=== PATIENT | female | born 1960 | race Caucasian/White ===

== ENCOUNTER 2017-10-04 13:25 | Emergency (ER) | payer OTHER ==
[~2017-10-04] VITALS: Ht 162.6 cm; Wt 71.1 kg
[2017-10-04] MEDS ORDERED: SODIUM CHLORIDE FLUSH 10ML SYR IVF ONE (14:00)
[2017-10-04] MEDS ORDERED: SODIUM CHLORIDE 0.9% 1,000ML IVBOLUS ONE (14:00)
[2017-10-04 14:09] LABS: HEMATOCRIT 43.2 % (34.6-47.8); HEMOGLOBIN 14.7 g/dL (11.7-16.4); WHITE BLOOD COUNT 15.1 x10^3/uL (3.4-10)
[2017-10-04 14:35] LABS: BLOOD UREA NITROGEN 10 mg/dL (7-18)
[2017-10-04 17:11] LABS: ASPARTATE AMINO TRANSFERASE 18 U/L (15-37)
[2017-10-04] MEDS ORDERED: OMNIPAQUE 350 MG/ML, 100ML BOTTLE ONE (17:31)
[2017-10-04 18:28] VITALS: BP 135/77
== END 2017-10-04 18:34 | disposition home or self-care (01) ==
LOC: ED 16:05
DX: K92.1 Melena (principal); K51.90 Ulcerative colitis, unspecified, without complications; I10 Essential (primary) hypertension
CPT/HCPCS: 36415; 74177; 80048; 80076; 82040; 85025; 85610; 85730; 99285; Q9967